=== PATIENT | female | born 1990 | race American Indian/Alaskan Native ===

== ENCOUNTER 2016-09-27 12:15 | Emergency (ER) | payer SELFPAY ==
--- NOTE | 2016-09-27 13:08 | XRay Report ---
RIGHT KNEE: Pain. The bony architecture is intact without evidence of fracture or dislocation. No significant soft tissue abnormality is seen. IMPRESSION: Normal right knee.
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
[2016-09-27] MEDS ORDERED: NORCO 5/325 PO ONE (16:00)
[2016-09-27] MEDS ORDERED: BACTRIM DS PO ONE (16:01)
[2016-09-27] MEDS ORDERED: TRIPLE ANTIBIOTIC TP ONE (16:01)
[2016-09-27 17:01] VITALS: BP 121/74
== END 2016-09-27 17:00 | disposition home or self-care (01) ==
LOC: ED 12:15
DX: S89.91XA Unspecified injury of right lower leg, initial encounter (principal); S80.211A Abrasion, right knee, initial encounter; J45.909 Unspecified asthma, uncomplicated; Z88.8 Allergy status to other drugs, medicaments and biological substances; X50.9XXA Other and unspecified overexertion or strenuous movements or postures, initial encounter; Y93.89 Activity, other specified; Y99.9 Unspecified external cause status; Y92.89 Other specified places as the place of occurrence of the external cause
CPT/HCPCS: A6250